=== PATIENT | male | born 1980 | race Two or more races ===

== ENCOUNTER → 2021-08-09 | Outpatient (CLI) | payer MEDICAID | END | disposition home or self-care (01) | LOC: LAB 06:21 | PROVIDERS: ATTEND Nurse Practitioner Family | DX: Z11.52 Encounter for screening for COVID-19 (principal) | CPT/HCPCS: C9803; U0003 ==

== ENCOUNTER 2022-11-11 21:18 | Inpatient (IN) | payer MEDICAID ==
[~2022-11-11] VITALS: Ht 182.9 cm; Wt 125.8 kg
[2022-11-11 20:20] VITALS: BP 110/69; PULSE 79; RESP 18; TEMP 97.2; O2SAT 95
[2022-11-11 21:25] VITALS: PULSE 87; RESP 15; O2SAT 94
[2022-11-11] MEDS ORDERED: HEPARIN SODIUM (PORCINE) 5000 UNITS/ML 1ML VIAL IV ONE (21:30)
[2022-11-11] MEDS ORDERED: TICAGRELOR 90 MG TAB PO ONE (21:30)
[2022-11-11] MEDS ORDERED: HEPARIN SODIUM (PORCINE) 5000 UNITS/ML 1ML VIAL ONE ×2 (21:31→21:54)
[2022-11-11] MEDS ORDERED: fentaNYL CITRATE 100 MCG/2 ML VL ONE (21:54)
[2022-11-11] MEDS ORDERED: ANGIOMAX 250 MG VIAL IV ONE (21:54)
[2022-11-11] MEDS ORDERED: VERAPAMIL 2.5MG/ML INJ 2ML VIAL IV ONE (21:54)
[2022-11-11] MEDS ORDERED: MIDAZOLAM HCL 2MG/2ML 2ml VIAL (1mg/ml) ONE (21:55)
[2022-11-11] MEDS ORDERED: SODIUM CHL 0.9% 0 ML ONE (21:55)
[2022-11-11] MEDS ORDERED: diphenhdrAMINE HCL 50 MG/1 ML VL ONE (22:05)
[2022-11-11] MEDS ORDERED: MORPHINE SULFATE INJ 2 MG/ml SYRG IV PRN (22:30)
[2022-11-11] MEDS ORDERED: NITROGLYCERIN 0.4 MG SL TAB SL PRN (22:30)
[2022-11-11 22:35] VITALS: BP 99/63; PULSE 76; RESP 14; O2SAT 97
[2022-11-11 22:50] VITALS: BP 104/64; PULSE 76; RESP 14; O2SAT 97
[2022-11-11 23:02] VITALS: BP 99/63; PULSE 77; RESP 17; TEMP 97.9; O2SAT 94
[2022-11-11] MEDS ORDERED: ONDANSETRON HCL 4 MG/2 ML VIAL IV PRN (23:30)
[2022-11-11] MEDS ORDERED: TEMAZEPAM 15 MG CAP PO PRN (23:30)
[2022-11-11 23:32] VITALS: BP 99/63; PULSE 17; PULSE 77; RESP 17; TEMP 97.9; O2SAT 94
[2022-11-11] MEDS ORDERED: NORT10CA PO (23:54)
[2022-11-11] MEDS ORDERED: ALLO100T PO (23:54)
[2022-11-11] MEDS ORDERED: RIME75TA PO (23:54)
[2022-11-11] MEDS ORDERED: CYCL-611 PO (23:54)
[2022-11-12 01:47] LABS: Basophils # (auto) 0 10 ^3/uL (0-0.2); Basophils % (auto) 0.5 % (0.0-2.0); Eosinophils # (auto) 0.2 10 ^3/uL (0-0.8); Eosinophils % (auto) 2.9 % (0.0-7.0); Hematocrit 39.8 % (41.0-53.0); Hemoglobin 13.5 g/dL (13.5-17.5); Lymphocytes # (auto) 1.8 10 ^3/uL (0.4-5.4); Lymphocytes % (auto) 24.5 % (10.0-50.0); Mean Corpuscular Hemoglobin 30.8 pg (28.0-32.0); Mean Corpuscular Hgb Conc. 33.9 g/dL (32.0-36.0); Mean Corpuscular Volume 90.8 fL (80.0-100.0); Monocytes # (auto) 0.3 10 ^3/uL (0-1.3); Monocytes % (auto) 4.5 % (0.0-12.0); Neutrophils # (auto) 4.9 10 ^3/uL (1.6-8.6); Neutrophils % (auto) 67.6 % (37.0-80.0); Red Blood Cells 4.38 10^6/uL (4.5-5.90); Red Cell Distribution Width 13.1 % (11.8-14.3); White Blood Cell 7.2 10^3/uL (4.4-10.8)
[2022-11-12] MEDS: HYDROcodone-ACET 5/325MG TAB PO PRN ×3 (01:55→18:32)
[2022-11-12 02:02] LABS: Alanine Aminotransferase 42 U/L (7-40); Albumin 4.2 g/dL (3.2-4.8); Alkaline Phosphatase 81 U/L (46-116); Anion Gap 5.4 (5-15); Aspartate Aminotransferase 22 U/L (13-40); BUN/Creatinine Ratio 15.8 (10.0-20.0); Blood Urea Nitrogen 12 mg/dL (9-23); Calcium 8.8 mg/dL (8.7-10.4); Carbon Dioxide 27.6 mmol/L (20-30); Chloride 104 mmol/L (98-107); Glucose 154 mg/dL (74-106); Potassium 3.9 mmol/L (3.5-5.1); Sodium 137 mmol/L (136-145)
[2022-11-12 02:03] LABS: Bilirubin, Total 1.6 mg/dL (0.2-1.0); Total Protein 6.4 g/dL (5.7-8.2)
[2022-11-12 05:00] VITALS: BP 138/63; PULSE 66; RESP 17; TEMP 98; O2SAT 97
[2022-11-12 08:00] VITALS: BP 135/68; PULSE 64; PULSE 65; PULSE 66; RESP 18; TEMP 97.9; O2SAT 98
[2022-11-12 09:00] VITALS: BP 135/68; PULSE 65; RESP 18; TEMP 97.9; O2SAT 98
[2022-11-12] MEDS: ACETAMINOPHEN 325 MG TAB PO PRN ×2 (11:32→18:32)
[2022-11-12 12:42] VITALS: BP 137/85; PULSE 66; RESP 18; TEMP 97.9; O2SAT 97
[2022-11-12 20:00] VITALS: BP 118/71; PULSE 65; PULSE 66; PULSE 72; RESP 18; TEMP 98.9; O2SAT 98
[2022-11-12 22:00] VITALS: BP 118/71; PULSE 74; RESP 18; TEMP 98.4; O2SAT 97
[2022-11-12] MEDS ORDERED: ATORVASTATIN 20 MG TAB PO SCH (22:00)
[2022-11-13 02:07] LABS: Amphetamine Screen, Urine Neg (NEGATIVE); Barbiturate Scree,Urine Neg (NEGATIVE); Benzodiazephine Screen, Urine Pos (NEGATIVE); Cannabinoid Screen, Urine Neg (NEGATIVE); Cocaine Screen, Urine Neg (NEGATIVE); Opiate Scree,Urine Neg (NEGATIVE); Phencyclidine Screen, Urine Neg (NEGATIVE)
[2022-11-13] MEDS: HYDROcodone-ACET 5/325MG TAB PO PRN ×2 (02:33→09:27)
[2022-11-13 05:00] VITALS: BP 121/75; PULSE 66; RESP 18; TEMP 97.9; O2SAT 100
[2022-11-13 07:30] VITALS: PULSE 66; RESP 18; O2SAT 97
[2022-11-13 08:00] VITALS: BP 130/84; PULSE 64; PULSE 66; RESP 18; TEMP 97.7
[2022-11-13 09:23] VITALS: BP 130/84; PULSE 66; RESP 18; TEMP 97.7; O2SAT 97
[2022-11-13] MEDS: ACETAMINOPHEN 325 MG TAB PO PRN (10:48)
[2022-11-13 12:44] VITALS: BP 134/76; PULSE 70; RESP 20; TEMP 97.9; O2SAT 94
[2022-11-13 15:12] VITALS: BP 134/76; PULSE 70; RESP 20; TEMP 97.9; O2SAT 94
== END 2022-11-13 15:41 | disposition home or self-care (01) | DRG 191 ==
LOC: ER 21:18 → EDBD 21:18 → TELE 22:37 → TELE-WESTW 23:02
PROVIDERS: ADMIT Internal Medicine Cardiovascular Disease; ATTEND Internal Medicine Cardiovascular Disease
PROC: B2111ZZ Fluoroscopy of Multiple Coronary Arteries using Low Osmolar Contrast (ICD-10-PCS; principal; 2022-11-11)
PROC: 4A023N7 Measurement of Cardiac Sampling and Pressure, Left Heart, Percutaneous Approach (ICD-10-PCS; 2022-11-11)
PROC: B2151ZZ Fluoroscopy of Left Heart using Low Osmolar Contrast (ICD-10-PCS; 2022-11-11)
DX: I25.10 Atherosclerotic heart disease of native coronary artery without angina pectoris (principal); E66.9 Obesity, unspecified; F32.A Depression, unspecified; M10.9 Gout, unspecified; G89.29 Other chronic pain; F41.0 Panic disorder [episodic paroxysmal anxiety]; J45.909 Unspecified asthma, uncomplicated; Z88.8 Allergy status to other drugs, medicaments and biological substances; Z68.37 Body mass index [BMI] 37.0-37.9, adult; Z82.49 Family history of ischemic heart disease and other diseases of the circulatory system
CPT/HCPCS: 36415; 80053; 80307; 84484; 85025; 93306; 93458; 99152; 99153; 99291; G0378; J2250